=== PATIENT | female | born 1975 | race Two or more races ===

== ENCOUNTER 2024-05-29 14:38 | Emergency (ER) | payer OTHER ==
[~2024-05-29] VITALS: Ht 160 cm; Wt 65.8 kg
[2024-05-29] MEDS ORDERED: 0.9 % SODIUM CHLORIDE 1,000 ML IV STA (17:35)
[2024-05-29] MEDS ORDERED: MECLIZINE HCL 25 MG TABLET PO STA (17:36)
[2024-05-29] MEDS ORDERED: METOCLOPRAMIDE HCL 5 MG/ML VIAL IM STA (17:36)
[2024-05-29] MEDS ORDERED: FAMOtidine 10 MG/ML (4ML VIAL) IV PUSH STA (17:37)
[2024-05-29] MEDS ORDERED: METOCLOPRAMIDE HCL 5 MG/ML VIAL ONE (18:21)
[2024-05-29] MEDS ORDERED: MECLIZINE HCL 25 MG TABLET PO ONE (18:21)
[2024-05-29] MEDS ORDERED: FAMOTIDINE/PF 20 MG/2 ML VIAL ONE (18:22)
[2024-05-29 18:59] LABS: HEMATOCRIT 41.8 % (36.0-45.00); HEMOGLOBIN 14.9 g/dL (12.0-15.00); MEAN CELL VOLUME 84.7 fL (80.00-100.00); MEAN CORPUSCULAR HEMOGLOBIN 30.2 pg (27.00-32.0); MEAN CORPUSCULAR HGB CONC 35.7 g/dl (32.0-36.0); PLATELET COUNT 646 K/uL (150-450); RED BLOOD COUNT 4.93 M/uL (4.00-6.00); RED CELL DISTRIBUTION WIDTH 13.5 % (11.5-14.5)
[2024-05-29 20:28] LABS: BILIRUBIN TOTAL 0.47 mg/dL (0.3-1.2); CALCIUM 8.6 mg/dL (8.5-10.1); CREATININE SERUM 0.58 mg/dL (0.55-1.02); GFR 110.49; GLOBULINA 5.4 G/DL (2.4-3.5); POTASSIUM 3.06 mEq/L (3.5-5.1); TOTAL PROTEIN 8.4 gm/dL (6.4-8.2)
== END 2024-05-30 10:08 | disposition home or self-care (01) ==
LOC: ER 14:38
DX: H81.10 Benign paroxysmal vertigo, unspecified ear (principal); K29.70 Gastritis, unspecified, without bleeding; Z91.013 Allergy to seafood; Z88.8 Allergy status to other drugs, medicaments and biological substances; Z74.01 Bed confinement status; G80.8 Other cerebral palsy

== ENCOUNTER 2024-12-11 14:45 | Emergency (ER) | payer OTHER ==
[~2024-12-11] VITALS: Ht 144.8 cm; Wt 48.1 kg
[2024-12-11] MEDS ORDERED: 0.9 % SODIUM CHLORIDE 1,000 ML IV STA (18:18)
[2024-12-11] MEDS ORDERED: FAMOtidine 10 MG/ML (4ML VIAL) IV PUSH STA (18:19)
[2024-12-11] MEDS ORDERED: ONDANSETRON HCL 2 MG/ML VIAL IV STA (18:19)
[2024-12-11] MEDS ORDERED: ONDANSETRON HCL 2 MG/ML VIAL ONE (18:27)
[2024-12-11] MEDS ORDERED: FAMOTIDINE/PF 20 MG/2 ML VIAL ONE (18:27)
[2024-12-11 19:10] LABS: BASO % 0.6 % (0.1-1.2); EOS # 0.10 (0.04-0.54); EOS % 1.2 % (0.7-7.0); LYMPH # 3.87 (1.18-3.74); LYMPH % 47.3 % (19.3-53.1); MEAN PLATELET VOLUME 8.80 fl (9.4-12.4); MONO # 0.57 (0.24-0.82); MONO % 7.0 % (4.7-12.5); NEUT # 3.58 (1.56-6.13); NEUT % 43.7 % (34.0-71.1); RED CELL DISTRIBUTION WIDTH 12.6 % (11.6-14.4)
[2024-12-11 19:34] LABS: ALT/SGPT 16.0 U/L (12-78); AST/SGOT 12.0 U/L (15-37); BILIRUBIN TOTAL 0.5 mg/dL (0.3-1.2); BUN CREA RATIO 13.0 (7.0-25.0); CREATININE SERUM 0.75 mg/dL (0.55-1.02); GFR 81.79; GLOBULINA 4.1 G/DL (2.4-3.5); GLUCOSE FASTING 108.0 mg/dL (65-100); OSMOLALITY SERUM 285.0 MOSM/KG (275-295)
[2024-12-11 19:42] LABS: URINE APPEARANCE Clear; URINE BILIRRUBIN Negative (NEGATIVE); URINE BLOOD Trace; URINE COLOR Yellow; URINE GLUCOSE Negative (NEGATIVE); URINE KETONE Negative (NEGATIVE); URINE LEUKOCYTE Moderate; URINE NITRATE Negative; URINE PROTEIN Negative (NEGATIVE); URINE UROBILINOGEN 1.0 E.U./dl
[2024-12-11 19:45] LABS: URINE BACTERIA 1458.0 uL (0.0-1933); URINE EPITHELIAL CELLS 45.2 uL (0.0-38.8); URINE RBC 39.0 uL (0.0-20.8); URINE WBC 119.2 uL (0.0-23.2)
[2024-12-11 19:55] LABS: URINE CAST 0.14 uL (0.0-1.40)
[2024-12-11 19:59] LABS: TYPE CELLS RENAL TUBULAR; URINE YEAST MODERATE /hpf
[2024-12-11] MEDS ORDERED: POTASSIUM CHLORIDE 8 MEQ TABLET PO STA (20:46)
== END 2024-12-12 01:05 | disposition home or self-care (01) ==
LOC: ER 14:45
DX: K29.70 Gastritis, unspecified, without bleeding (principal); G80.9 Cerebral palsy, unspecified; Z88.8 Allergy status to other drugs, medicaments and biological substances